=== PATIENT | male | born 1955 | race Caucasian/White ===

== ENCOUNTER 2021-05-02 00:55 | Day surgery (SDC) | payer OTHER, SELFPAY ==
[2021-04-23 15:39] VITALS: BMI 30.1
--- NOTE | 2021-05-01 17:20 | PM.HPGS ---
History of Present Illness History of Present Illness Consent: Risks, benefits, and alternatives have been discussed and questions answered. Patient agrees to proceed with procedure. Chief complaint: neoplasm screening Narrative: Dayday Valenzuela is a 65 year old male referred for colon cancer screening. Review of Systems Review of Systems: All systems reviewed & are unremarkable except as noted in HPI and below PMFSH Past Medical History Medical History Thrombocytopenia Family History Family History Father Hypertension Family history of coronary artery disease Mother Hypertension Family history of diabetes mellitus in first degree relative Family history of coronary artery disease Sibling Hypertension Family history of diabetes mellitus in first degree relative Social History Social History Smoking status: Never smoker Second hand tobacco smoke exposure: No Alcohol intake: current Substance use: never Substance use type: does not use Living arrangements: with family Gender identity (if verbalized by the patient): Male Sexual Orientation (if Verbalized by the Patient): Straight or Heterosexual Spiritual care concerns: No Meds Home Medications and Allergies Home Medications Medication Instructions Recorded Confirmed Type atorvastatin 20 mg tablet 20 mg PO DAILY #90 tablet 07/23/20 05/02/21 Rx lisinopril 10 See Rx Instructions .ROUTE 11/13/20 05/02/21 Rx mg-hydrochlorothiazide 12.5 mg .COMPLEX #90 tablet tablet omega-3 acid ethyl esters 1 gram 2 cap PO BID #360 cap 11/13/20 05/02/21 Rx capsule Allergies Allergy/AdvReac Type Severity Reaction Status Date / Time Penicillins Allergy Unknown unk Verified 05/02/21 08:42 AMOXICILLIN TRIHYDRATE Allergy Unknown unk Uncoded 05/02/21 08:42 Exam Resp: Auscultation: clear to auscultation bilaterally Cardio: Rate: regular rate Rhythm: regular rhythm GI: GI Palp: Yes Soft to palpation and No Tenderness to palpation present (GI) Assessment and Plan Assessment and plan (1) Colon cancer screening: Code(s): Z12.11 - Encounter for screening for malignant neoplasm of colon Status: Acute Assessment and Plan: Colonoscopy with possible biopsy or polypectomy or cautery or injection of substances.
[2021-05-02 08:43] VITALS: BP 130/74; PULSE 86; RESP 18; TEMP 37.4; O2SAT 99; BMI 30.7
[2021-05-02] MEDS: LACTATED RINGERS 1,000 ML 150 ML IV CONT (08:45)
--- NOTE | 2021-05-02 08:49 | WPDANESEPPF ---
Anes - Initial Pre Proc Eval Procedure: Operation Date: 05/02/21 10:00 Proposed Procedures p Screening Colonoscopy - Rickey Deluna MD Date/Time: 05/02/21 08:49 Surgeon: Rickey Deluna MD Pre Op Diagnosis: neoplasm screening Patient Data Age: 65 Gender: M Height: 1.8 m Weight: 99.9 kg Last Vital Signs Temp 37.4 C 05/02/21 08:43 Pulse 86 05/02/21 08:43 Resp 18 05/02/21 08:43 BP 130/74 05/02/21 08:43 Pulse Ox 99 05/02/21 08:43 Allergies Allergy/AdvReac Type Severity Reaction Status Date / Time Penicillins Allergy Unknown unk Verified 05/02/21 08:42 AMOXICILLIN TRIHYDRATE Allergy Unknown unk Uncoded 05/02/21 08:42 Home Medications Medication Instructions Recorded Confirmed Type atorvastatin 20 mg tablet 20 mg PO DAILY #90 tablet 07/23/20 05/02/21 Rx lisinopril 10 See Rx Instructions .ROUTE 11/13/20 05/02/21 Rx mg-hydrochlorothiazide 12.5 mg .COMPLEX #90 tablet tablet omega-3 acid ethyl esters 1 gram 2 cap PO BID #360 cap 11/13/20 05/02/21 Rx capsule Patient hx anesthesia problems: none Family hx anesthesia problems: none Results Review: All pre-operative results and documents have been reviewed as part of the pre-operative evaluation. [facility] Past Medical History Medical History (Updated 05/02/21 @ 08:52 by Remberto Nava MD) Thrombocytopenia Family History Family History Father Hypertension Family history of coronary artery disease Mother Hypertension Family history of diabetes mellitus in first degree relative Family history of coronary artery disease Sibling Hypertension Family history of diabetes mellitus in first degree relative Social History Social History Smoking status: Never smoker Second hand tobacco smoke exposure: No Alcohol intake: current Substance use: never Substance use type: does not use Living arrangements: with family Gender identity (if verbalized by the patient): Male Sexual Orientation (if Verbalized by the Patient): Straight or Heterosexual Spiritual care concerns: No Anes - Eval Final PreProcedure Day of Procedure 05/02/21 08:49 Patient weight: obese Heart: regular rate and rhythm Lungs: clear to auscultation Airway: Mallampati scale class II and special considerations poor opening Neurological: alert and oriented Last oral intake: >/= 8 hours ASA classification: II Emergent: no Anesthetic plan: proceed Anesthesia type and monitoring: general GIVS and standard monitoring Results Review: All pre-operative results and documents have been reviewed as part of the pre-operative evaluation. Informed Consent: The patient's anesthetic plan and its attendant risks and benefits were discussed with the patient/family/POA. Questions were solicited and answers provided to the satisfaction of the patient/family/POA.
[2021-05-02 09:42] VITALS: BP 104/69; PULSE 81; RESP 21; O2SAT 92
[2021-05-02 09:52] VITALS: BP 106/70; PULSE 78; RESP 21; O2SAT 93
[2021-05-02 10:02] VITALS: BP 120/72; PULSE 79; RESP 20; O2SAT 96
== END 2021-05-02 10:27 | disposition home or self-care (01) ==
PROVIDERS: PCP Family Medicine; Visit Provider Internal Medicine Gastroenterology
PROC: 0DJD8ZZ Inspection of Lower Intestinal Tract, Via Natural or Artificial Opening Endoscopic (ICD-10-PCS; CPT 45378; principal; 2021-05-02 10:00)
DX: Z12.11 Encounter for screening for malignant neoplasm of colon (principal); K57.30 Diverticulosis of large intestine without perforation or abscess without bleeding; K58.9 Irritable bowel syndrome, unspecified
CPT/HCPCS: 45378; J2001; J2704; J7120

== ENCOUNTER 2021-10-14 07:47 | Outpatient (CLI) | payer OTHER, SELFPAY ==
[2021-10-14 08:24] LABS: Basophils Absolute Auto 0.1 K/mm3 (0.0-0.1); Basophils Percent Auto 0.8 % (0.2-1.2); Eosinophils Absolute Auto 0.5 K/mm3 (0-0.3); Eosinophils Percent Auto 6.3 % (0-4.4); Hemoglobin 14.9 g/dL (14.0-18.0); Immature Granulocyte Absolute 0.03 K/mm3 (0.00-0.031); Immature Granulocyte Percent A 0.4 % (0-0.5); Lymphocytes Absolute Auto 2.67 K/mm3 (0.9-3.2); Lymphocytes Percent Auto 34.8 % (18.3-44.2); Mean Corpuscular HGB Conc 33.9 g/dl (32-36); Mean Corpuscular Hemoglobin 29.4 pg (26-34); Mean Platelet Volume 9.2 fl (7.4-10.4); Monocytes Absolute Auto 0.6 K/mm3 (0.1-0.6); Monocytes Percent Auto 7.7 % (2.6-8.5); Neutrophils Absolute Auto 3.8 K/mm3 (1.3-6.7); Platelet Count Result 160 k/mm3 (150-375); Red Blood Count 5.06 M/mm3 (4.6-6.20); Red Cell Distribution Width 13.3 % (11.5-14.5); White Blood Count 7.7 K/mm3 (4.5-10.0)
[2021-10-14 08:35] LABS: Anion Gap 4 mmol/L (8-16); Blood Urea Nitrogen 16 mg/dL (9-20); Carbon Dioxide 29 mmol/L (22-30); Chloride 105 mmol/L (98-107); Estimated Glomerular Filt Rate > 60; Glucose 109 mg/dL (65-110); Potassium 3.7 mmol/L (3.4-5.0); Sodium 138 mmol/L (137-145)
== END 2021-10-14 07:48 | disposition home or self-care (01) ==
PROVIDERS: Anesthesiology; Physician Assistant; PCP Family Medicine; Visit Provider Surgery
DX: D69.6 Thrombocytopenia, unspecified (principal); Z51.81 Encounter for therapeutic drug level monitoring; Z01.818 Encounter for other preprocedural examination
CPT/HCPCS: 36415; 80048; 85025

== ENCOUNTER 2021-10-18 00:41 | Day surgery (SDC) | payer OTHER, SELFPAY ==
[2021-10-11 10:58] VITALS: BMI 30.7
--- NOTE | 2021-10-11 11:13 | PC.NURSE ---
Report to the Outpatient Waiting Room, entrance under the green pavilion located off [facility], at time __6:00AM on date ___10/18/21____. OR Time: ___7:30AM . - You and your visitor will be asked a series of questions to screen for COVID 19 for your protection. - Only one visitor is allowed at this time. - The patient visitor is requested to leave or wait in car when not with patient. - A mask is required within the hospital. Patients may have clear liquids (water, carbonated beverages, clear teas, apple juice) until 3 hours prior to surgery with a maximum of 20 ounces. - No food from midnight until time of surgery - Infants may have breast milk until 4 hours before surgery, formula 6 hours prior to surgery. - Children will be allowed to drink immediately following surgery. If applicable, please bring a bottle or sippy cup to assist with drinking. Juice, water, soda, and popsicles are readily available. For infants on formula, please bring formula the day of surgery. Pacifiers are allowed. Take the following medications with a SIP of water the morning of surgery: ___NONE Medications to discontinue per physician HOLD ALL VITAMINS/SUPPLEMENTS 3 DAYS PRE-OP Date to take last dose____10/14/21 CONTINUE ASPIRIN 81MG PER [address] EASTON Please no make-up, nail hungarian, hairspray, perfume, deodorant, or body powder the day of surgery. No jewelry (including any body piercings) or valuables the day of surgery, leave them at home. Please take a shower or bath the night before, or the morning of, surgery with an antibacterial soap. Wear comfortable, loose fitting clothing. Children are encouraged to wear pajamas. - Jewelry must be removed prior to entering the operating room. Rings and piercings that are not removed may be cut off. - The hospital will not accept responsibility for valuables. - Please leave all valuables, including medications, at home the day of surgery. *HIBICLENS SHOWER MORNING OF SURGERY If you are going home after surgery, a licensed parcel post truck driver must drive you home. - NO public transportation without another adult. - We recommend that an adult stay with you for 24 hours following discharge. - We also recommend that you do not drive, make important decision, drink alcoholic beverages, or take any drugs that were not prescribed by your health care provider for at least 24 hours after your discharge time. For Pediatric surgeries, we recommend two adults accompany the child home (only one inside the building at this time). Follow any additional instructions given to you from your surgeon. If you or anyone in your household have experienced Covid symptoms in the past week, please notify your surgeon or the nurse liaison at the phone number below for possible testing. Telephone instructions given to _PATIENT and asked if any additional questions and then verbalized understanding. Patient advised to call surgeon office or pre surgery nurse liaison [phone] if any additional questions.
--- NOTE | 2021-10-15 11:08 | PM.SD2 ---
Same Day Admit/Disch: HPI History of Present Illness Chief complaint: Lt Ing Hernia Narrative: Dayday Valenzuela is a 66 year old male who has noticed a bulge in the left groin area for 3 or 4 years. This is occasionally painful and has been getting bigger. He was seen in the office and found to have a left inguinal hernia. He is taken to surgery now for left inguinal hernia repair. [facility] Past Medical History Medical History (Updated 10/18/21 @ 09:52 by Rolando Romano MD) BMI 31.0-31.9,adult Essential hypertension Obesity Pure hyperglyceridemia Thrombocytopenia Surgical History Surgical History History of surgery on upper extremity Family History Family History Father Hypertension Family history of coronary artery disease Mother Hypertension Family history of diabetes mellitus in first degree relative Family history of coronary artery disease Sibling Hypertension Family history of diabetes mellitus in first degree relative Social History Social History Smoking status: Never smoker Second hand tobacco smoke exposure: No Alcohol intake: current Drinks per week: 1 Substance use: never Substance use type: does not use Living arrangements: with family Additional living arrangements comments: Gender identity (if verbalized by the patient): Male Sexual Orientation (if Verbalized by the Patient): Straight or Heterosexual Spiritual care concerns: No Same Day Admit/Disch: Med Pre-admit Medications Home Medications Medication Instructions Recorded Confirmed Type atorvastatin 20 mg tablet 20 mg PO DAILY #90 tabs 08/05/21 10/18/21 Rx aspirin 81 mg tablet,delayed 81 mg PO DAILY 10/11/21 10/18/21 History release lisinopril 10 1 tablet PO QAM 10/11/21 10/18/21 History mg-hydrochlorothiazide 12.5 mg tablet omega-3 acid ethyl esters 1 gram 1 cap PO BID 10/11/21 10/18/21 History capsule (Lovaza) hydrocodone 5 mg-acetaminophen 325 1 - 2 tablet PO Q6H PRN pain #15 10/18/21 Rx mg tablet tabs ibuprofen 600 mg tablet 600 mg PO Q6H PRN pain #20 tabs 10/18/21 Rx Exam Const: General: comfortable, no acute distress, alert and awake HENMT: Head: normocephalic and atraumatic Mouth: Yes Normal oral and palatal mucosa present Eyes: Conjunctivae: conjunctivae normal Pupils: Equal, round and reactive pupils present EOM: EOMs intact bilaterally Neck: Neck: normal visual inspection, no lymphadenopathy and nontender Resp: Effort & Inspection: normal respiratory effort Auscultation: clear to auscultation bilaterally Cardio: Rate: regular rate Rhythm: regular rhythm Heart sounds: no gallops, no murmurs and no rubs GI: Inspection: non-distended GI Palp: Yes Soft to palpation, No Tenderness to palpation present (GI), No Hepatomegaly present and No Splenomegaly present : Male General Exam: Yes hernia ( reducible left inguinal hernia, insight Hesselbach triangle) Penis: Yes normal penis Scrotum: scrotum normal Testes: Testes normal Skin: Lesions: no lesions Rashes: no rashes Neuro: General: no focal motor deficits and CN's II-XI intact bilaterally Cranial nerves: Yes Equal, round and reactive pupils present, Yes Bilaterally intact EOM present, Yes facial symmetry and Yes Midline tongue present Speech: normal speech Motor exam (neuro): 5/5 motor strength present throughout and Motor abnormalities not present Extrem: General: no clubbing, cyanosis or edema and edema Psych: Affect: normal affect Thought process: Normal thought process present Insight: Good insight present (Psych) DS: Summary Time Spent with Patient Time attestation: Total time spent providing and/or coordinating discharge services: DS: Admitting Diagnosis Discharge Date 10/18/2021 Admitting Diagnosis left ingui
--- NOTE | 2021-10-17 11:51 | WPDANESEPPF ---
Anes - Initial Pre Proc Eval Procedure: Operation Date: 10/18/21 07:30 Proposed Procedures p Left Inguinal Hernia Repair - Rolando Romano MD Date/Time: 10/17/21 11:51 Surgeon: Rolando Romano MD Pre Op Diagnosis: Lt Ing Hernia Patient Data Age: 66 Gender: M Height: 1.8 m Weight: 100 kg Allergies Allergy/AdvReac Type Severity Reaction Status Date / Time No Known Allergies Allergy Verified 10/18/21 06:35 Home Medications Medication Instructions Recorded Confirmed Type atorvastatin 20 mg tablet 20 mg PO DAILY #90 tabs 08/05/21 10/18/21 Rx aspirin 81 mg tablet,delayed 81 mg PO DAILY 10/11/21 10/18/21 History release lisinopril 10 1 tablet PO QAM 10/11/21 10/18/21 History mg-hydrochlorothiazide 12.5 mg tablet omega-3 acid ethyl esters 1 gram 1 cap PO BID 10/11/21 10/18/21 History capsule (Lovaza) Patient hx anesthesia problems: none Family hx anesthesia problems: none Results Review: All pre-operative results and documents have been reviewed as part of the pre-operative evaluation. [facility] Past Medical History Medical History (Updated 10/17/21 @ 11:51 by Stalin Rivera MD) BMI 31.0-31.9,adult Essential hypertension Obesity Pure hyperglyceridemia Thrombocytopenia Surgical History Surgical History History of surgery on upper extremity Family History Family History Father Hypertension Family history of coronary artery disease Mother Hypertension Family history of diabetes mellitus in first degree relative Family history of coronary artery disease Sibling Hypertension Family history of diabetes mellitus in first degree relative Social History Social History Smoking status: Never smoker Second hand tobacco smoke exposure: No Alcohol intake: current Drinks per week: 1 Substance use: never Substance use type: does not use Living arrangements: with family Additional living arrangements comments: Gender identity (if verbalized by the patient): Male Sexual Orientation (if Verbalized by the Patient): Straight or Heterosexual Spiritual care concerns: No Anes - Eval Final PreProcedure Day of Procedure 10/17/21 11:51 Patient weight: obese Heart: regular rate and rhythm Lungs: clear to auscultation Airway: Mallampati scale class II and special considerations poor opening Neurological: alert and oriented Last oral intake: >/= 8 hours ASA classification: II Emergent: no Anesthetic plan: proceed Anesthesia type and monitoring: general GIVS and LMA and standard monitoring Results Review: All pre-operative results and documents have been reviewed as part of the pre-operative evaluation. Informed Consent: The patient's anesthetic plan and its attendant risks and benefits were discussed with the patient/family/POA. Questions were solicited and answers provided to the satisfaction of the patient/family/POA.
[2021-10-18] MEDS: ACETAMINOPHEN 500 MG TABLET 1000 MG PO (06:31)
[2021-10-18] MEDS: LACTATED RINGERS 1,000 ML 30 ML IV CONT (06:45)
[2021-10-18 06:50] VITALS: BP 166/78; PULSE 81; RESP 16; TEMP 37.1; O2SAT 98
[2021-10-18] MEDS: KETOROLAC 15 MG/ML VIAL (*BKC) IV PUSH (07:13)
--- NOTE | 2021-10-18 07:15 | WPDHPUPDATE1 ---
History and Physical Update Update Date/Time: 10/18/21 07:15 History and Physical has been reviewed, including an updated exam of the patient. There are NO changes in the patient's condition. Risks, benefits, and alternatives have been discussed and questions answered. Patient agrees to proceed with procedure.
[2021-10-18] MEDS: ceFAZolin 2 GM/D5W 50 ML 2 GM/50 ML BAG IVPB (07:21)
[2021-10-18] MEDS: LIDO 1%/EPINEPHRINE/PF 1:200,000 30 ML VIAL XX (07:49)
[2021-10-18 09:29] VITALS: BP 137/69; PULSE 81; RESP 16; O2SAT 93
[2021-10-18 09:44] VITALS: BP 140/78; PULSE 64; RESP 16; O2SAT 95
--- NOTE | 2021-10-18 09:53 | W.PM.PROC2 ---
Procedure Note - Detailed Date of Procedure 10/18/21 Pre-op Diagnosis Lt Ing Hernia Post-op Diagnosis Same Procedure Performed Left inguinal hernia repair with extra-large PerFix Light plug and patch Surgeon Rolando Romano MD Job Developer Sandrita MCFARLAND Anesthesia General (G IV S), Local (1% lidocaine with epinephrine) and Other (Xaracoll) Indications Patient has had a left inguinal bulge for at least 3-4 years. It has been getting larger and is sometimes painful. He is taken to surgery now for left inguinal hernia repair. Findings Patient had a longstanding indirect left inguinal hernia. It was densely adherent to tissues of the spermatic cord. There was a sizable lipoma of the cord as well. He also had a small, developing direct inguinal hernia. Description of Procedure The patient was taken to surgery and anesthesia was introduced. The left groin and genitalia were prepped and draped. The proposed incision was marked on the skin. Local anesthetic was infiltrated into the skin and the deeper subcutaneous tissues. Incision was made and deepened through the subcutaneous. Crossing veins were cauterized and divided. Dissection was carried through Mayo's fascia and down to the external oblique aponeurosis. The aponeurosis was exposed as was the external ring. I infiltrated additional local deep to the aponeurosis in the area of the inguinal canal and the spermatic cord. The aponeurosis was opened laterally and extended medially through the external ring. It was heavily scarred at the external ring. I could not follow the path of the ilioinguinal nerve on the spermatic cord past the external ring even though great care had been taken to separate the aponeurosis from the cord when opening it at the external ring. The leaves of the aponeurosis were then freed from the underlying spermatic cord contents. The cord was mobilized medially on a Dodge drain. The cord was then mobilized back to the internal ring. The spermatic cord had a lot of bulky content suggesting a larger Bernei as well as fatty tissue. I found a large lipoma and dissected it back to the internal ring. It was eventually amputated and discarded. I then dissected anteromedially in the cord. I found the hernia sac. It was heavily scarred suggesting it had been present for a long time. He was difficult to from the spermatic cord contents although this was done without significant bleeding or injury of any significant blood vessel. We continued this rather tedious dissection back to the internal ring and completed a high dissection. At 1 point I opened the hernia sac at its apex and was able to put my finger into the cord and assist with the dissection. I later then closed this opening with a running 3-0 Vicryl suture. I dunked the hernia sac into the retroperitoneum. I then proceeded to further mobilize the cord and divide some cremasteric fibers. Some additional fatty tissue was excised from the cord again taking care not to injure any significant blood vessels. I then noticed that there was small, possibly a developing, direct hernia in the direct space. I used an extra-large PerFix Light plug and placed it in the internal ring after the hernia had been reduced. I sutured the edges of the mesh to the transversalis fascia with interrupted 3-0 Vicryl suture. I then used some 0 Ethibond and closed transversalis fascia to the reflection of the ileoinguinal ligament to repair the developing direct hernia. I then cut the patch to the appropriate size and laid it over the inguinal canal floor. The lateral leaves passed beyond the cord on either side. All looked good. I then placed the 1st piece of Xaracoll over the patch. The cord and ilioinguinal nerve were laid over the the Xaracoll. The external oblique aponeurosis was closed with interrupted 3-0 Vicryl suture. The 2nd piece of Xaracoll was then laid over the aponeurosis. I closed Mayo's fascia with interrupte
[2021-10-18 10:01] VITALS: BP 120/69; PULSE 64; RESP 16
[2021-10-18 10:30] VITALS: BP 131/68; PULSE 71; RESP 18
[2021-10-18 10:59] VITALS: BP 153/71; PULSE 61; RESP 16
== END 2021-10-18 11:00 | disposition home or self-care (01) ==
PROVIDERS: PCP Family Medicine; Visit Provider Surgery
PROC: (CPT 49505; principal; 2021-10-18 07:30)
DX: K40.90 Unilateral inguinal hernia, without obstruction or gangrene, not specified as recurrent (principal); D17.6 Benign lipomatous neoplasm of spermatic cord; Z79.82 Long term (current) use of aspirin; I10 Essential (primary) hypertension; R73.9 Hyperglycemia, unspecified; D69.6 Thrombocytopenia, unspecified; E66.9 Obesity, unspecified; Z68.31 Body mass index [BMI] 31.0-31.9, adult
CPT/HCPCS: 49505; 36415; 80048; 85025; A9270; C1781; J0690; J1885; J2250; J2704; J3010; J7120

== ENCOUNTER 2024-01-27 16:44 | Outpatient (CLI) | payer OTHER, SELFPAY ==
--- NOTE | ~2024-01-27 | XR_ITS ---
XR knee RT min 4V Ordering provider: Jimbo Baez PA-C History: . M17.11 - Unilateral primary osteoarthritis, right knee . Comparison: June 07, 2016 FINDINGS: BONES: No acute fracture or dislocation. JOINT SPACES: Severe narrowing of the medial compartment. Marginal osteophytes in the patella. Subchondral cystic area seen medially in the femur unchanged. Possibility of loose body is seen in th e skyline view is not excluded. SOFT TISSUES: Normal. IMPRESSION: No acute osseous abnormality right knee. Severe osteoarthritic changes. Reviewed, dictated and finalized at location A.
== END 2024-01-27 16:45 | disposition home or self-care (01) ==
LOC: ANHIMG 16:52
PROVIDERS: PCP Family Medicine; Visit Provider Physician Assistant
DX: M17.11 Unilateral primary osteoarthritis, right knee (principal)
CPT/HCPCS: 73564

== ENCOUNTER 2024-06-23 09:47 | Outpatient (CLI) | payer OTHER, SELFPAY ==
--- NOTE | 2024-06-23 10:00 | ECG_ITS ---
Test Date: 2024-06-23 10:11:27 Measurements Intervals [place] Rate: 72 P: 14 AL: 225 QRS: 39 QRSD: 109 T: 0 QT: 364 QTc: 401 Interpretive Statements SINUS RHYTHM WITH FIRST DEGREE AV BLOCK CONSIDER INFERIOR INFARCT, AGE INDETERMINATE ABNORMAL ECG No previous ECG available for comparison Electronically Signed On 06-23-2024 10:12:40 CREPING MACHINE OPERATOR HELPER by Silverio Chu D.O.
--- OUTSIDE RECORDS SUMMARY | 2024-06-23 10:11 | XMS_ITS | Clinical Summary ---
Author Organization [facility] Address [facility] [place] [address] Care Team Providers Care Lithography Contact Worker Name Role Phone Unavailable Primary Care Provider Unavailabl e Source Comments [facility],non-owned Affiliates and Associated Physician Practices is amultiple site organization consisting of ambulatory clinics and hospital sitesin [place], [place]. This disclosure is being madepursuant to the Care Everywhere program and may not contain all information available regarding this patient. Last updated 18.[facility] Social History Tobacco Use Types Packs/Day Years Used Date Smoking Tobacco: Never Assessed Sex and Gender Information Value Date Recorded Sex Assigned at Not on file Gender Identity Not on file Sexual Orientation Not on file Plan of Treatment Health Maintenance Due Date Last Done Comments COLOGUARD (AGES 45-75) - COL ON CA SCREENING 1956 COLON MONITORING 1956 COLONOSCOPY - COLON CA SCREENING 1956 CT COLONOGRAPHY - COLON CA SCREENING 1956 Colorectal Cancer Screening 1956 FIT - COLON CA SCREENING 1956 FLEX SIG - COLON CA SCREENING 1956 LIPID TESTING 1956 HEPATITIS C SCREENING 07/25/1974 DTAP/TDAP/TD VACCINES (1 - Tdap) 07/30/1975 PNEUMOCOCCAL VACCINE 50+ (1 of 1 - PCV) 2006 ZOSTER VACCINE (1 of 2) 2006 COVID-19 VACCINE ( - 2023-2 5 season) 2024 INFLUENZA VACCINE (#1) 2024 DEPRESSION SCREENING 05/11/2024 Respiratory Syncytial Virus (RSV) Vaccine Pt: or over 60 yrs (1 - 1-dose 75+ series) 07/30/2031 HEPATITIS B VACCINE Aged Out No longe r eligible based on patient's age to complete this topic HIB VACCINE Aged Out No longer eligi ble based on patient's age to complete this topic HPV VACCINE Aged Out No longer eligi ble based on patient's age to complete this topic MENINGOCOCCAL (Group B) VACCINE Aged Out No longer eligible based on patient's age to complete this topic MENINGOCOCCAL VACCINE Aged Out No luan tess eligible based on patient's age to complete this topic
--- OUTSIDE RECORDS SUMMARY | 2024-06-23 10:11 | XMS_ITS | Referral Summary ---
Author Organization [facility] Address [facility] [place] [address] Care Team Providers Care Charcoal Burner Beehive Kiln Name Role Phone Unavailable Primary Care Provider Unavailabl e Source Comments [facility],non-general [facility] Affiliates and Associated Physician Practices is amultiple site organization consisting of ambulatory clinics and hospital sitesin [place], [place], [place] and [place]. This disclosure is being madepursuant to the Care Everywhere program and may not contain all information available regarding this patient. Last updated 18.[facility] [employer] Social History Tobacco Use Types Packs/Day Years Used Date Smoking Tobacco: Never Assessed Sex and Gender Information Value Date Recorded Sex Assigned at Not on file Gender Identity Not on file Sexual Orientation Not on file Plan of Treatment Not on file Administered Medications
--- OUTSIDE RECORDS SUMMARY | 2024-06-23 10:11 | XMS_ITS | Patient Health Summary ---
Author Organization [facility] Address [address] [place] [address] Care Team Providers Care Production Zone Leader Name Role Phone Unavailable Primary Care Provider Unavailabl e Note from [facility],non-owned Affiliates and Associated Physician Practices is amultiple site organization consisting of ambulatory clinics and hospital sitesin [place], [place], [place] and [place]. This disclosure is being madepursuant to the Care Everywhere program and may not contain all information available regarding this patient. Last updated 18.[facility] [employer] Social History Tobacco Use Types Packs/Day Years Used Date Smoking Tobacco: Never Assessed Sex and Gender Information Value Date Recorded Sex Assigned at Not on file Gender Identity Not on file Sexual Orientation Not on file Procedures * SKIN TEST PPD - POINT OF CARE(Performed 10/31/2019) Performed for Screening for tuberculosis Results * SKIN TEST PPD - POINT OF CARE (10/31/2019 9:09 AM CDT) PPD 0mm normal, ppd placed on 10/28/2019 @ 6:55pm, ppd read on 10/31/2019 @ 0905 Other MISCELLANEOUS SAMPLE S / Unknown 10/31/2019 9:09 AM CDT Rogers Griffith RIGHT OF WAY CLEARER-DAIRY TECHNICIAN LAB - POINT OF CARE ORDERABLES
--- OUTSIDE RECORDS SUMMARY | 2024-06-23 10:11 | XMS_ITS | Clinical Summary ---
Author Organization [facility] Address [address] [place] [address] Care Team Providers Care Senior Treasury Analyst Name Role Phone Unavailable Primary Care Provider Unavailabl e Immunizations Immunization Administration Dates Next Due (SHINGRIX)(50 YRS UP) ZOSTER VACCINE RECOMBINANT, 0.5 ML, IM 04/05/2022 INFLUENZA VACCINE HIGH DOSE QUADRIVALENT 65 YR U P PF IM 01/12/2023 Social History Tobacco Use Types Packs/Day Years Used Date Smoking Tobacco: Never Assessed Sex and Gender Information Value Date Recorded Sex Assigned at Not on file 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
== END 2024-06-23 09:48 | disposition home or self-care (01) ==
LOC: ANHCARD 09:49
PROVIDERS: PCP Family Medicine; Visit Provider Orthopaedic Surgery
DX: I10 Essential (primary) hypertension (principal)
CPT/HCPCS: 93005

== ENCOUNTER 2024-08-15 08:49 | Outpatient (CLI) | payer OTHER, SELFPAY ==
--- NOTE | ~2024-08-15 | NM_ITS ---
EXAMINATION: NM valerie stress w perfusion DATE: 08/15/2024 10:52 INDICATION: Encounter for preprocedural cardiovascular examination TECHNIQUE: Rest images were obtained following intravenous administration of 10.6 mCi Tc99m tetrofosm in (Myoview). The patient was infused intravenously with Lexiscan (Regadenoson). Then, 33 mCi Tc99m t etrofosmin (Myoview) was administered intravenously, and stress images were obtained. Data was recons tructed into short axis and horizontal and vertical long axis SPECT images. Gated SPECT images were a lso obtained. COMPARISON: None. FINDINGS: There is no definite reversible or fixed perfusion abnormality to suggest ischemia or infar ction. There is normal left ventricular chamber size, wall motion and ejection fraction. Left ventr icular ejection fraction measures >70%. IMPRESSION: 1. Normal myocardial perfusion at rest and during stress. 2. Left ventricular ejection fraction measuring >70%. Reviewed, dictated and finalized at location A.
--- NOTE | 2024-08-15 08:58 | EST_ITS ---
Patient Info Name: Dayday Valenzuela Age: 69 years : 1955 Gender: Male Ht: 71 in Wt: 202 lbs BSA: 2.16 m2 HR: 69 bpm BP: 121 / 70 mmHg Exam Date: 08/15/2024 10:01 AM Exam Location: Echo Lab Patient Status: Outpatient Admit Date: 08/15/2024 Staff Ordering Physician: Silverio Chu DO Attending Provider: Silverio Chu DO Exercise Technologist: Lexi Stevens RDCS Exercise Physician: Silverio Chu DO Exam Type: CA stress valerie w NM Study Info A regadenoson stress test was performed. Summary 1. 1. Negative lexiscan stress test for ischemic ST changes by ECG criteria. 2. 2. Stable hemodynamics throughout the test. 3. 3. Nuclear scan to follow and will be reported separately. Please correlate with it. 4. 4. Patient informed of the above results. Protocol: Lexiscan Stress ECG Details Stage: REST Duration (min): 1 min : 0 sec HR (bpm): 66 SBP (mmHg): 121 DBP (mmHg): 70 Stage: REST Duration (min): 6 min : 9 sec HR (bpm): 71 SBP (mmHg): 121 DBP (mmHg): 70 Stage: STAGE 1 Duration (min): 1 min : 0 sec HR (bpm): 82 SBP (mmHg): 123 DBP (mmHg): 69 Stage: RECOVERY Duration (min): 1 min : 0 sec HR (bpm): 91 SBP (mmHg): 123 DBP (mmHg): 69 Stage: RECOVERY Duration (min): 2 min : 0 sec HR (bpm): 86 SBP (mmHg): 123 DBP (mmHg): 69 Stage: RECOVERY Duration (min): 3 min : 0 sec HR (bpm): 84 SBP (mmHg): 128 DBP (mmHg): 67 Stage: RECOVERY Duration (min): 3 min : 3 sec HR (bpm): 84 SBP (mmHg): 128 DBP (mmHg): 67 Rest HR: 71 bpm Peak HR: 92 bpm Rest Sys BP: 121 mmHg Peak Sys BP: 128 mmHg Max Pred HR: 152 bpm % Max Pred HR: 61 % Target HR: 129 bpm Max RPP: 11,776 bpm*mmHg Termination Reason: Completed protocol Cardiac Symptoms: Shortness of breath Total Time: 1 min : 0 sec Rest Brooks BP: 70 mmHg Peak Brooks BP: 67 mmHg Total Dose: 0.4 mg Resting ECG Sinus rhythm. Stress ECG No ST changes. Arrhythmias None. Report Signatures
--- OUTSIDE RECORDS SUMMARY | 2024-08-15 09:21 | XMS_ITS | Clinical Summary ---
Author Organization [facility] Address [facility] [place] [address] Care Team Providers Care Assistant Superintendent Name Role Phone Unavailable Primary Care Provider Unavailabl e Source Comments [facility],non-owned Affiliates and Associated Physician Practices is amultiple site organization consisting of ambulatory clinics and hospital sitesin [place], [place], [place] and [place]. This disclosure is being madepursuant to the Care Everywhere program and may not contain all information available regarding this patient. Last updated 18.[facility] Social History Tobacco Use Types Packs/Day Years [...] to complete this topic MENINGOCOCCAL (Group B) VACC INE SHARED DECISION-MAKING Aged Out No longer eligibl e based on patient's age to complete this topic MENINGOCOCCAL GROUPS A/C/Y/W VACCINE Aged Out No longer eligible b ased on patient's age to complete this topic
--- OUTSIDE RECORDS SUMMARY | 2024-08-15 09:21 | XMS_ITS | Clinical Summary ---
Author Organization [facility] Address [address] [place] 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
== END 2024-08-15 08:50 | disposition home or self-care (01) ==
LOC: ANHCARD 08:51
PROVIDERS: PCP Family Medicine; Visit Provider Internal Medicine Cardiovascular Disease
DX: Z01.810 Encounter for preprocedural cardiovascular examination (principal)
CPT/HCPCS: 78452; 93017; A9502; J2785

== ENCOUNTER 2024-08-18 11:57 | Outpatient (CLI) | payer OTHER, SELFPAY ==
--- OUTSIDE RECORDS SUMMARY | 2024-08-18 12:37 | XMS_ITS | Clinical Summary ---
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
--- OUTSIDE RECORDS SUMMARY | 2024-08-18 12:37 | XMS_ITS | Clinical Summary ---
Author Organization [facility] [employer] Address [facility] [place] [address] Care Team Providers Care Line Server Name Role Phone Unavailable Primary Care Provider Unavailabl e Source Comments [facility],non-owned Affiliates and Associated Physician Practices is amultiple site organization consisting of ambulatory clinics and hospital sitesin [place], [place] and [place]. This disclosure is being madepursuant to the Care Everywhere program and may not contain all information available regarding this patient. Last updated 18.[facility] [employer] Social History Tobacco Use Types Packs/Day Years [...] VACCINE ( - 2023-2 5 season) 2024 DEPRESSION SCREENING 05/11/2024 INFLUENZA VACCINE (Season Ended) 2025 Respiratory Syncytial Virus (RSV) Vaccine Pt: or [...]
[2024-08-18 13:18] LABS: Basophils Percent Auto 0.6 % (0.2-1.2); Eosinophils Absolute Auto 0.2 K/mm3 (0-0.3); Eosinophils Percent Auto 3.1 % (0-4.4); Hematocrit 39.1 % (42.0-52.0); Hemoglobin 13.5 g/dL (14.0-18.0); Immature Granulocyte Absolute 0.02 K/mm3 (0.00-0.031); Immature Granulocyte Percent A 0.3 % (0-0.5); Lymphocytes Absolute Auto 2.08 K/mm3 (0.9-3.2); Mean Corpuscular HGB Conc 34.5 g/dl (32-36); Mean Corpuscular Hemoglobin 29.7 pg (26-34); Mean Corpuscular Volume 86.1 fl (80-100); Mean Platelet Volume 9.4 fl (7.4-10.4); Monocytes Absolute Auto 0.7 K/mm3 (0.1-0.6); Monocytes Percent Auto 10.4 % (2.6-8.5); Neutrophils Absolute Auto 3.5 K/mm3 (1.3-6.7); Neutrophils Percent Auto 53.6 % (45.5-73.1); Platelet Count Result 182 k/mm3 (150-375); Red Blood Count 4.54 M/mm3 (4.6-6.20); Red Cell Distribution Width 12.7 % (11.5-14.5); White Blood Count 6.5 K/mm3 (4.5-10.0)
[2024-08-18 13:20] LABS: Add Urine Microscopic? NO; Appearance Urine Clear (Clear); Bilirubin Urine Negative (Negative); Blood Urine Negative (Negative); Color Urine Yellow (Yellow); Glucose Urine UA Negative (Negative); Ketones Urine Trace mg/dL (Negative); Leukocyte Esterase Ur Negative LEU/UL (Negative); Nitrate Urine Negative (Negative); Protein Urine Negative (Negative); Specific Grav Ur 1.017 (1.001-1.035); Urobilinogen Urine 0.2 mg/dL (<2.0); pH Urine 5.5 (5.0-9.0)
[2024-08-18 13:31] LABS: Albumin Level 4.5 g/dL (3.5-5.1); Anion Gap 11 mmol/L (4-12); Blood Urea Nitrogen 15 mg/dL (9-20); Calcium 9.1 mg/dL (8.4-10.2); Carbon Dioxide 24 mmol/L (22-30); Chloride 102 mmol/L (98-107); Estimated Glomerular Filt Rate > 60; Glucose 93 mg/dL (65-110); Potassium 4.2 mmol/L (3.4-5.0); Sodium 137 mmol/L (137-145)
[2024-08-18 13:35] LABS: Partial Thromboplastin Time 27.7 Seconds (22.3-36.8)
[2024-08-18 13:41] LABS: Urine Cotinine NEGATIVE
[2024-08-18 13:44] LABS: Prothrombin Time 13.5 Seconds (11.1-14.7)
[2024-08-18 14:32] LABS: MRSA (PCR) NOT DETECTED (NOT DETECTE)
== END 2024-08-18 11:58 | disposition home or self-care (01) ==
LOC: ANHSURGERY 12:01
PROVIDERS: PCP Family Medicine; Visit Provider Orthopaedic Surgery
DX: M17.11 Unilateral primary osteoarthritis, right knee (principal); Z01.818 Encounter for other preprocedural examination
CPT/HCPCS: 80048; 80307; 81003; 82040; 85025; 85610; 85730; 86850; 86900; 86901; 87641

== ENCOUNTER 2024-08-24 00:41 | Day surgery (SDC) | payer OTHER, SELFPAY ==
--- NOTE | 2024-08-18 12:01 | PC.NURSE ---
Report to the Outpatient Waiting Room, entrance under the green pavilion located off [facility], at time _8:30 AM on date __08/24/24 . Planned Procedure Time: _10:30 AM .? Time changes happen often and if your time is changed the preop area will call you the afternoon before. - You and your visitor will be asked to self-screen and do not enter if you have any COVID symptoms. Please call surgeon if you need to reschedule. - A mask is optional within the hospital at this time. Patients may have clear liquids (water, carbonated beverages, clear teas, apple juice) until 3 hours prior to surgery ( 7:30 AM) with a maximum of 20 ounces. - No food from midnight until time of surgery and no smoking, or chewing tobacco (or any form of nicotine). No chewing gum, candy or mints. Take only the following medications with a SIP of water on the morning of surgery: ___SERTRALINE DO NOT STOP ANY OF YOUR OTHER PRESCRIPTION MEDICATIONS PRIOR TO SURGERY EXCEPT THE FOLLOWING PT STATES Hold all vitamins and supplements for [address] JAMISON LAST DOSE 08/16/[address] JAMISNO Medications to discontinue per physician Date to take last dose Please no make-up, nail irish, hairspray, perfume, deodorant, or body powder the day of surgery.? No jewelry (including any body piercings) or valuables the day of surgery, leave them at home.? Please take a shower or bath the night before, or the morning of, surgery with an antibacterial soap.? Wear comfortable, loose fitting clothing.? Children are encouraged to wear pajamas. - Jewelry must be removed prior to entering the operating room.? Rings and piercings that are not removed may be cut off. - The hospital will not accept responsibility for valuables.? - Please leave all valuables, including medications, at home the day of surgery. If you are going home after surgery, a licensed restaurant delivery driver must drive you home.? - NO public transportation without another adult if you receive anesthesia. - We recommend that an adult stay with you for 24 hours following discharge. - We also recommend that you do not drive, make important decision, drink alcoholic beverages, or take any drugs that were not prescribed by your health care provider for at least 24 hours after your discharge time. Follow any additional instructions given to you from your surgeon. VERBAL AND WRITTEN instructions given to _PATIENT and asked if any additional questions and then verbalized understanding. Patient advised to call surgeon office or pre surgery nurse liaison [phone] if any additional questions.
[2024-08-18 12:05] VITALS: BMI 29.3
[2024-08-18 12:53] VITALS: BP 115/66; PULSE 72; RESP 18; TEMP 36.8; O2SAT 98
[2024-08-24] VITALS (19 sets, daily range): BP systolic 104–163; BP diastolic 56–86; PULSE 59–78; RESP 12–20; TEMP 36.4–37.2; O2SAT 92–100
--- NOTE | ~2024-08-24 | XR_ITS ---
EXAMINATION: [id number] DATE: 08/24/2024 13:37 CDT INDICATION: Postoperative evaluation TECHNIQUE: 2 views right knee FINDINGS: There is a right total knee arthroplasty in expected position. Subcutaneous gas with fluid and air in the joint, consistent with recent surgery. No evidence of periprosthetic fracture. IMPRESSION: Expected perioperative appearance of a right total knee prosthetic, as detailed above. Reviewed, dictated and finalized at location A.
--- OUTSIDE RECORDS SUMMARY | 2024-08-24 00:43 | XMS_ITS | Clinical Summary ---
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
--- OUTSIDE RECORDS SUMMARY | 2024-08-24 00:43 | XMS_ITS | Clinical Summary ---
Author Organization [facility] Address [facility] [place] [address] Care Team Providers Care Collection Clerk Name Role Phone Unavailable Primary Care Provider Unavailabl e Source Comments [facility],non-owned Affiliates and Associated Physician Practices is amultiple site organization consisting of ambulatory clinics and hospital sitesin [place], [place], [place] and [place]. This disclosure is being madepursuant to the Care Everywhere program and may not contain all information available regarding this patient. Last updated 18.[facility] Social History Tobacco Use Types Packs/Day Years Used Date Smoking Tobacco: Never Assessed Sex and Gender Information Value Date Recorded Sex Assigned at Not on file Legal Sex Male 6:34 PM CDT Gender Identity Not on file Sexual Orientation [...] VACCINE (1 of 2) 2006 COVID-19 VACCINE (1 - 2023-2 5 season) 2024 DEPRESSION SCREENING [...] on patient's age to complete this topic Insurance [facility]
--- NOTE | 2024-08-24 07:19 | WPDHPUPDATE1 ---
History and Physical Update Update Date/Time: 08/24/24 07:19 History and Physical has been reviewed, including an updated exam of the patient. There are NO changes in the patient's condition. Risks, benefits, and alternatives have been discussed and questions answered. Patient agrees to proceed with procedure.
[2024-08-24] MEDS: TRANEXAMIC ACID 1,000MG/ISO100 1,000 MG/100 ML BAG 200 MG IVPB (09:00)
[2024-08-24] MEDS: LACTATED RINGERS 1,000 ML 30 ML IV CONT ×2 (09:00→11:51)
--- NOTE | 2024-08-24 09:28 | WPDANESEPPF ---
Anes - Initial Pre Proc Eval Procedure: Operation Date: 08/24/24 10:30 Proposed Procedures p Right Total Knee Arthroplasty - Ulices Nascimento MD Date/Time: 08/24/24 09:28 Surgeon: Ulices Nascimento MD Pre Op Diagnosis: Rt Knee DJD Patient Data Age: 69 Gender: M Height: 1.8 m Weight: 92.4 kg Last Vital Signs Temp 37.2 C 08/24/24 09:00 Pulse 72 08/24/24 09:00 Resp 16 08/24/24 09:00 BP 137/74 08/24/24 09:00 Pulse Ox 99 08/24/24 09:00 O2 Del Method Room Air 08/24/24 09:00 Allergies Allergy/AdvReac Type Severity Reaction Status Date / Time No Known Allergies Allergy Verified 08/24/24 09:16 Home Medications ?Medication ?Instructions ?Recorded ?Confirmed ?Type sertraline 25 mg tablet 25 mg PO DAILY #90 tabs 09/22/23 08/22/24 Rx lisinopril 10 1 tablet PO QAM #90 tabs 04/12/24 08/24/24 Rx mg-hydrochlorothiazide 12.5 mg tablet celecoxib 200 mg capsule (Celebrex) 200 mg PO DAILY #90 caps 04/25/24 08/24/24 Rx omega-3 acid ethyl esters 1 gram 2 cap PO BID #360 caps 04/25/24 08/24/24 Rx capsule (Lovaza) rosuvastatin 10 mg tablet 10 mg PO DAILY #90 tabs 04/25/24 08/24/24 Rx chlorhexidine gluconate 4 % 1 applic topical ONCE #237 mL 08/17/24 08/24/24 Rx topical liquid (Hibiclens) cetirizine 10 mg tablet (Aller-Mckenna) 10 mg PO DAILY PRN allergy symptoms 08/18/24 08/24/24 History cholecalciferol (vitamin D3) 50 50 mcg PO DAILY 08/18/24 08/24/24 History mcg (2,000 unit) capsule coQ10 (ubiquinol) 100 mg capsule 100 mg PO DAILY 08/18/24 08/24/24 History magnesium 250 mg tablet 250 mg PO DAILY 08/18/24 08/24/24 History Patient hx anesthesia problems: none Family hx anesthesia problems: none Results Review: All pre-operative results and documents have been reviewed as part of the pre-operative evaluation. [facility] Past Medical History Medical History Obesity BMI 31.0-31.9,adult Thrombocytopenia Essential hypertension Pure hyperglyceridemia Surgical History Surgical History H/O inguinal hernia repair History of surgery on upper extremity Family History Family History Father Hypertension Family history of coronary artery disease Mother Hypertension Family history of diabetes mellitus in first degree relative Family history of coronary artery disease Sibling Hypertension Family history of diabetes mellitus in first degree relative Unknown Diabetes mellitus Cerebrovascular accident Hypertension High cholesterol Social History Social History Smoking status: Never smoker Second hand tobacco smoke exposure: No Additional smoking assessment comments: DENIES ANY FORM OF TOBACC USE Alcohol intake: current Drinks per week: 1 Substance use: never Substance use type: does not use Other substance usage details: CBD SL LIQUID EVERY HS NO THC Living arrangements: with family Additional living arrangements comments: Occupation/Education: occupation Gender identity (if verbalized by the patient): Male Sexual Orientation (if Verbalized by the Patient): Straight or Heterosexual Spiritual care concerns: No Anes - Eval Final PreProcedure Day of Procedure 08/24/24 09:28 Patient weight: overweight Heart: regular rate and rhythm Lungs: clear to auscultation Airway: Mallampati scale class II Neurological: alert and oriented Last oral intake: >/= 8 hours ASA classification: II Emergent: no Anesthetic plan: proceed Anesthesia type and monitoring: general LMA and standard monitoring Results Review: All pre-operative results and documents have been reviewed as part of the pre-operative evaluation. Informed Consent: The patient's anesthetic plan and its attendant risks and benefits were discussed with the patient/family/POA. Questions were solicited and answers provided to the satisfaction of the patient/family/POA.
[2024-08-24] MEDS: ACETAMINOPHEN 500 MG TABLET 1000 MG PO (09:29)
[2024-08-24] MEDS: ceFAZolin 2 GM/D5W 50 ML 2 GM/50 ML BAG IVPB ×2 (10:00→17:18)
[2024-08-24] MEDS: SODIUM CHLORIDE 0.9% IV 37.7 ML, MORPHINE SULFATE INJ (*CRX) 2 MG, ROPivacaine HCL 1% 2... INFILTRATE (10:22)
[2024-08-24] MEDS: TRANEXAMIC ACID 1,000 MG/10 ML AMPUL 1000 MG IV PUSH (11:08)
--- NOTE | 2024-08-24 11:55 | P.OP_ITS ---
Procedure Note - Detailed Date of Procedure 08/24/24 Pre-op Diagnosis Rt Knee DJD Post-op Diagnosis Same Procedure Performed R TKA Surgeon Ulices Nascimento MD Anesthesia General Description of Procedure THE RIGHT KNEE WAS PREPPED AND DRAPED IN THE STERILE FASHION. THERE WAS A 10 DEGREE FLEXION CONTRACTURE. A MIDLINE SKIN INCISION WAS MADE. A MEDIAL PARAPATELLAR ARTHROTOMY WAS MADE. THE PATELLA WAS EVERTED. THERE WAS TRICOMPARTMENT DJD. THERE WAS MINIMAL PATELLA DJD. AN INTRAMEDULLARY KATHY WAS PLACED IN THE FEMUR. A DISTAL FEMORAL CUT WAS MADE IN 5 DEGREES OF VALGUS REMOVING APPROXIMATELY 8 MM OF BONE FROM THE DISTAL FEMUR. THE FEMUR WAS SIZED TO 5. A 5 FEMORAL CUTTING BLOCK WAS PLACED IN 3 DEGREES OF EXTERNAL ROTATION AND IN ALIGNMENT WITH WEST'S LINE AND THE TRANSEPICONDYLAR AXIS. ANTERIOR POSTERIOR AND CHAMFER CUTS WERE MADE. THE CUTS WERE EXCELLENT. NEXT AN INTRAMEDULLARY CUTTING GUIDE WAS PLACED IN THE TIBIA. A TRANS TIBIAL CUT WAS MADE ALONG THE LONG AXIS OF THE TIBIA. APPROXIMATELY 8 MM OF BONE WAS REMOVED FROM THE HIGH SIDE OF THE TIBIA. THE TIBIA WAS THEN PLANED TO A SMOOTH SURFACE. POSTERIOR FEMORAL OSTEOPHYTES WERE REMOVED FROM THE FEMORAL CONDYLES. A 5 TIBIAL TRIAL WAS PLACED IN ALIGNMENT WITH THE 1/3 MEDIAL ASPECT OF THE TIBIAL TUBERCLE. THEN A 5 FEMORAL TRIAL COMPONENT WAS PLACED. BOTH HAD EXCELLENT FITS. EVENTUALLY A 9 MM CS POLYETHYLENE TRIAL COMPONENT WAS PLACED. THE KNEE WAS TAKEN THROUGH A RANGE OF MOTION. THE KNEE CAME OUT TO FULL EXTENSION. THER E WAS NO ABNORMAL TILT TO THE PATELLA. THERE WAS GOOD A/P AND VARUS/VALGUS STABILITY. THERE WAS NO EXCESSIVE ROLL BACK WITH FLEXION. THE TRIAL COMPONENTS WERE REMOVED. THEN A SHAHRZAD 5 FEMORAL COMPONENT AND 5 TIBIAL COMPONENT WITH A 9 CS POLYETHYLENE COMPONENT WERE PRESS FIT INTO PLACE. IMPLANT SURFACES WERE FLUSH WITH THE BONE SURFACE. THE KNEE WAS TAKEN THROUGH A ROM AGAIN AND FOUND TO BE STABLE WITH NO PATELLA TILT NO EXCESSIVE ROLL BACK WITH FLEXION AND GOOD STABILITY WITH COMPLETE AND FULL EXTENSION. THE KNEE WAS IRRIGATED WITH STERILE BETADINE AND WATER FOR ABOUT 3 MINUTES. THE BLEEDERS WERE CAUTERIZED. THE ARTHROTOMY WAS REPAIRED WITH NUMBER 1 VICRYL AND 2 STRATAFIX. THE SUB CUTANEOUS LAYER WITH 2-0 VICRYL AND THE SKIN WITH A RUNNING 3-0 STRATAFIX AND DERMABOND. THE WOUND WAS WASHED AND A STERILE DRESSING WAS APPLIED. PATIENT WAS EXTUBATED. Estimated Blood Loss -150.0 Pathology None sent Complications No immediate complications Condition Stable Disposition PACU
[2024-08-24] MEDS: HYDROmorphone HCL INJ (*CRX) 1 MG/ML SYR 0.25 MG IV PUSH (12:21)
--- NOTE | 2024-08-24 14:05 | SUR.PHASEI ---
[id number] NURSE TELEGRAPHIC TYPEWRITER OPERATOR CHIEF FRACISCO CALLED RE: BED NUMBER; SHE SAID SHE WOULD CALL BACK SOON THERE IS A BED.
--- NOTE | 2024-08-24 14:27 | SUR.PHASEI ---
PHYSICAL THERAPY COMING TO WORK WITH PATIENT. PATIENT MOVED TO OP ROOM 16. PATIENT VERY ALERT, ORIENTED, TALKATIVE, DECLINES PAIN MED.
--- NOTE | 2024-08-24 15:34 | ADMGEN ---
This patient, Dayday Valenzuela, was admitted to -. Patient/family oriented to hospital policies and general routines including ID bracelet, bed and alarms, visiting hours, pain management, procedures, bathroom and other care routines, personal items, smoking policy, room service/diet, and visiting hours. Information on how to activate the Rapid Response Team has been discussed. Patient/Family are encouraged to report perceived risks to care and to ask questions if they do not understand what they are told or what they should do. Report from Annalise.
[2024-08-24] MEDS: oxyCODONE/ACETAMINOPHEN (*CRX) 5-325 MG TABLET 1 TABLET PO ×2 (15:46→20:03)
[2024-08-24] MEDS: KETOROLAC 15 MG/ML VIAL (*BKC) IV PUSH (17:17)
[2024-08-24] MEDS: SENNA/DOCUSATE SODIUM TABLET 2 TAB PO (17:18)
[2024-08-24] MEDS: ASPIRIN 81 MG ENTERIC TABLET PO (20:03)
[2024-08-24] MEDS: FAMOTIDINE 20 MG TABLET PO (20:03)
[2024-08-25] MEDS: KETOROLAC 15 MG/ML VIAL (*BKC) IV PUSH ×3 (00:15→11:13)
[2024-08-25 01:12] VITALS: BP 126/72; PULSE 73; RESP 18; TEMP 37.1; O2SAT 97
[2024-08-25] MEDS: ceFAZolin 2 GM/D5W 50 ML 2 GM/50 ML BAG IVPB ×2 (02:52→11:12)
[2024-08-25] MEDS: oxyCODONE/ACETAMINOPHEN (*CRX) 5-325 MG TABLET 1 TABLET PO (03:01)
[2024-08-25 05:06] VITALS: BP 153/73; PULSE 74; RESP 18; TEMP 37.2; O2SAT 96
[2024-08-25 06:05] LABS: Basophils Percent Auto 0.2 % (0.2-1.2); Eosinophils Percent Auto 0.3 % (0-4.4); Hematocrit 32.1 % (42.0-52.0); Immature Granulocyte Absolute 0.07 K/mm3 (0.00-0.031); Immature Granulocyte Percent A 0.5 % (0-0.5); Lymphocytes Absolute Auto 1.71 K/mm3 (0.9-3.2); Lymphocytes Percent Auto 13.2 % (18.3-44.2); Mean Corpuscular HGB Conc 34.3 g/dl (32-36); Mean Corpuscular Hemoglobin 30.2 pg (26-34); Mean Corpuscular Volume 88.2 fl (80-100); Mean Platelet Volume 9.2 fl (7.4-10.4); Monocytes Absolute Auto 0.8 K/mm3 (0.1-0.6); Monocytes Percent Auto 6.4 % (2.6-8.5); Neutrophils Absolute Auto 10.3 K/mm3 (1.3-6.7); Neutrophils Percent Auto 79.4 % (45.5-73.1); Platelet Count Result 156 k/mm3 (150-375); Red Blood Count 3.64 M/mm3 (4.6-6.20); Red Cell Distribution Width 13.1 % (11.5-14.5)
[2024-08-25 06:14] LABS: Anion Gap 8 mmol/L (4-12); Blood Urea Nitrogen 17 mg/dL (9-20); Calcium 8.3 mg/dL (8.4-10.2); Carbon Dioxide 23 mmol/L (22-30); Chloride 105 mmol/L (98-107); Estimated CRCL calculation 69 ml/min; Estimated Glomerular Filt Rate > 60; Glucose 105 mg/dL (65-110); Sodium 136 mmol/L (137-145)
[2024-08-25] MEDS: polyethylene glycoL 3350 17 GM POWD.PACK PO (08:02)
[2024-08-25] MEDS: FAMOTIDINE 20 MG TABLET PO (08:02)
[2024-08-25] MEDS: oxyCODONE/ACETAMINOPHEN (*CRX) 10-325 MG TABLET 1 TAB PO ×2 (08:02→13:46)
[2024-08-25] MEDS: SENNA/DOCUSATE SODIUM TABLET 2 TAB PO (08:02)
[2024-08-25] MEDS: ASPIRIN 81 MG ENTERIC TABLET PO (08:02)
[2024-08-25 09:12] VITALS: BP 103/62; PULSE 88; RESP 15; TEMP 36.8; O2SAT 98
[2024-08-25 12:44] VITALS: O2SAT 99
[2024-08-25 13:12] VITALS: BP 128/58; PULSE 82; RESP 16; TEMP 37.2; O2SAT 100
--- NOTE | 2024-08-25 16:12 | P.PNOP_ITS ---
Progress Note: A&P Assessment and Plan (1) Osteoarthritis of right knee: Code(s): M17.11 - Unilateral primary osteoarthritis, right knee Status: Acute Assessment and Plan: POD 1 DOING WELL. OK TO DC HOME F/U IN 3 WEEKS Subjective Subjective Date/Time Seen: 08/25/24 16:12 Interval history: POD 1 DOING WELL. NO CALF PAIN, GOOD PROGRESS WITH PT Exam Extrem: Other: VSS AFEBRILE DRESSING DRY NV INTACT NEG HOMANS SIGN CALF SOFT NON TENDER Objective Data Vital Signs Vital Signs: Vital Signs - 24 hr 08/24/24 17:12 08/24/24 21:12 08/25/24 01:12 Temperature 36.6 C 36.6 C 37.1 C Pulse Rate 64 70 73 Respiratory Rate 18 18 18 Blood Pressure 108/58 L 131/58 L 126/72 Pulse Oximetry 100 94 97 Oxygen Delivery 08/25/24 05:06 08/25/24 08:00 08/25/24 09:12 Temperature 37.2 C 36.8 C Pulse Rate 74 88 Respiratory Rate 18 15 Blood Pressure 153/73 H 103/62 Pulse Oximetry 96 98 Oxygen Delivery Room Air 08/25/24 12:44 08/25/24 13:12 Temperature 37.2 C Pulse Rate 82 Respiratory Rate 16 Blood Pressure 128/58 L Pulse Oximetry 99 100 Oxygen Delivery Room Air Intake/Output Intake/Output: Intake & Output 08/22/24 08/23/24 08/24/24 08/25/24 23:59 23:59 23:59 23:59 Intake Total 2400 530 Output Total 3 Balance 2400 527 Meds/Results Medications: Active Medications Generic Name Dose Route Start Last Admin Trade Name Freq PRN Reason Stop Dose Admin Acetaminophen 500 mg 08/24/24 15:27 Acetaminophen 500 Mg Tablet PO Q6H PRN Pain Rated 1-3 Aspirin 81 mg 08/24/24 21:00 08/25/24 08:02 Aspirin 81 Mg Enteric Tablet PO 81 mg Q12HR DORYS Administration Diazepam 5 mg 08/24/24 15:27 Diazepam (*Crx) 5 Mg Tablet PO Q8H PRN Spasms Diphenhydramine HCl 25 mg 08/24/24 15:27 Diphenhydramine Hcl Inj 50 Mg/Ml Vial IV PUSH Q6H PRN Itching Famotidine 20 mg 08/24/24 21:00 08/25/24 08:02 Famotidine 20 Mg Tablet PO 20 mg Q12HR DORYS Administration Hydromorphone HCl 1 mg 08/25/24 08:12 Hydromorphone Hcl Inj (*Crx) 2 Mg/Ml Vial IV PUSH Q2H PRN Breakthrough Pain Rated 7-10 or NPO Hydromorphone HCl 0.5 mg 08/25/24 08:12 Hydromorphone Hcl Inj (*Crx) 2 Mg/Ml Vial IV PUSH Q2H PRN Breakthrough Pain Rated 4-6 or NPO Ibuprofen 800 mg in 200 mls @ 400 mls/hr 08/24/24 15:27 Caldolor 800 Mg/200 Ml IVPB Q6H PRN Breakthrough Pain Rated 1-3 or NPO Ketorolac Tromethamine 15 mg 08/24/24 18:00 08/25/24 11:13 Ketorolac 15 Mg/Ml Vial (*Bkc) IV PUSH 08/25/24 18:01 15 mg Q6HR DORYS Administration Miscellaneous Information 1 each 08/24/24 00:01 Magnesium 250mg Ordered. We Stock Mag Oxide 200mg And Mag Gluconate 250mg - Please Specif XX 09/23/24 00:00 CLARIFY DORYS Naloxone HCl 0.1 mg 08/24/24 15:27 Naloxone Hcl 0.4 Mg/Ml Vial IV PUSH Q2M PRN Opiate Reversal Ondansetron HCl 4 mg 08/24/24 15:27 Ondansetron Inj 4 Mg/2 Ml Vial IV PUSH Q4H PRN Nausea And Vomiting Oxycodone/Acetaminophen 1 tablet 08/24/24 15:27 08/25/24 03:01 Oxycodone/Acetaminophen (*Crx) 5-325 Mg Tablet PO 1 tablet Q4H PRN Administration Pain Rated 4-6 Oxycodone/Acetaminophen 1 tab 08/24/24 15:27 08/25/24 13:46 Oxycodone/Acetaminophen (*Crx) 10-325 Mg Tablet PO 1 tab Q6H PRN Administration Pain Rated 7-10 Polyethylene Glycol 17 gm 08/25/24 09:00 08/25/24 08:02 Polyethylene Glycol 3350 17 Gm Powd.Pack PO 17 gm QAM DORYS Administration Senna/Docusate Sodium 2 tab 08/24/24 17:00 08/25/24 08:02 Senna/Docusate Sodium Tablet PO 2 tab BID DORYS Administration Radiology Results: ITS Impressions Knee X-Ray 08/24/24 13:37 IMPRESSION: Expected perioperative appearance of a right total knee prosthetic, as detailed above. Labs Labs: Laboratory Results - last 24 hr 08/25/24 05:52 WBC 13.0 H RBC 3.64 L Hgb 11.0 L Hct 32.1 L MCV 88.2 MCH 30.2 MCHC 34.3 RDW 13.1 Plt Count 156 MPV 9.2 Immature Gran % (Auto) 0.5 Neut % (Auto) 79.4 H Lymph % (Auto) 13.2 L [place] % (Auto) 6.4 Eos % (Auto) 0.3 Baso % (Auto) 0.2 Lymph # (Auto) 1.71 [place] # (Auto) 0.8 H Eos # (Auto) 0.0 Baso # (Auto) 0.0 Abs Immat Gran (auto) 0.07 H Absolute Neuts (auto) 10.3 H Absolute Nucleated RBC 0.000 Nucleated RBC % 0.0 Sodium 136 L Potassium 4.0 Chloride 105 Carbon Dioxide 23 Anion Gap 8 BUN 17 Creatinine 0.96 Estim Creat Clear Calc 69 Estimated GFR > 60 Glucose 105 Calcium 8.3 L
== END 2024-08-25 17:30 | disposition home health service (06) ==
LOC: ANHSURGERY 10:52 → ANH3MEDSUR 15:39
PROVIDERS: PCP Family Medicine; Visit Provider Orthopaedic Surgery
PROC: (CPT 27447; principal; 2024-08-24 10:30)
DX: M17.11 Unilateral primary osteoarthritis, right knee (principal); Z79.899 Other long term (current) drug therapy
CPT/HCPCS: 27447; 36415; 73560; 80048; 85025; 97110; 97116; 97161; 97165; 97530; 97535; A9270; C1713; C1776; J0171; J0690; J1171; J1885; J2003; J2250; J2270; J2405; J2704; J2795; J3010; J7120

== ENCOUNTER 2024-10-18 15:15 | Outpatient (RCR) | payer OTHER, SELFPAY ==
--- NOTE | 2024-09-20 16:17 | OPREHPOC ---
Outpatient Therapy Plan of Care This is a Multidisciplinary Plan of Care that may contain components documented by all disciplines (PT, OT, and ST.) PT Problem 1 PT Problem #1 Knowledge Deficit PT Goal 1 Goal / Goal Update [place] with HEP Target Visit 4 PT Goal 2 Goal / Goal Update Report no pain greater than 2/10 Target Visit 8 PT Problem 2 PT Problem #2 Impaired Range of Motion PT Goal 1 Goal / Goal Update 1. Achieve terminal knee extension 2. Improve R knee flexion ROM to 125 degrees Target Visit 8 PT Problem 3 PT Problem #3 Edema PT Goal 1 Goal / Goal Update Demonstrate 2+ cm reduction in knee joint line measure Target Visit 8 PT Problem 4 PT Problem #4 Impaired Gait PT Goal 1 Goal / Goal Update Ambulate independent of AD with even stride length bilaterally Target Visit 8
--- NOTE | 2024-09-20 16:18 | PTOPEVAL1 ---
Assessment and note entered by Matti Gómez, PT Evaluation Information Assessment Status Evaluation Diagnosis Right Total Knee Arthroplasty ICD-10 Condition Codes (PT) Pain in right hip M25.551 Onset 08/24/24 Subjective Information Reports that overall he feels he is doing fairly well. Feels that his biggest struggles are motion and stretching of the knee. Reports that he was very bow legged prior to surgery and can feel that he is changing the direction of his bend. Struggles with squatting and floor retrieval. Reports that he has been having some trouble with sleeping and he still gets some sharp pains on the anterior knee off and on when sleeping. Reported Pain Level Pain Score 0: Self Report Assessment PT Clinical Summary Patient presents with signs and symptoms typical of post operative total knee arthroplasty. Patient is 1 month out of surgery and presents with continued dependence on AD, knee swelling, and lack of full functional knee ROM. 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 Plan of Care Interventions Gait Training,Manual Therapy,Neuro Re-education, Therapeutic Activities,Therapeutic Exercise PT Services Indicated Yes Treatment Frequency and 2x/week for 8 visits Duration These treatments will address the objective and functional deficits as defined above. The patient will be advanced safely and appropriately in order for the patient to progress towards his/her prior level of function. Additional exercises will be introduced and as well as a comprehensive home exercise program upon discharge, if needed, ?to ensure carryover of functional gains achieved in the clinic. This treatment plan has been reviewed and agreement upon by the patient.
--- NOTE | 2024-10-18 16:18 | OPREHPOC ---
Outpatient Therapy Plan of Care This is a Multidisciplinary Plan of Care that may contain components documented by all disciplines (PT, OT, and ST.) PT Problem 1 PT Problem #1 Knowledge Deficit PT Goal 1 Goal / Goal Update [place] with HEP Target Visit 4 Progress Met PT Goal 2 Goal / Goal Update Report no pain greater than 2/10 Target Visit 8 Progress Met PT Problem 2 PT Problem #2 Impaired Range of Motion PT Goal 1 Goal / Goal Update 1. Achieve terminal knee extension 2. Improve R knee flexion ROM to 125 degrees Target Visit 8 Progress Partially Met PT Problem 3 PT Problem #3 Edema PT Goal 1 Goal / Goal Update Demonstrate 2+ cm reduction in knee joint line measure Target Visit 8 Progress Met PT Problem 4 PT Problem #4 Impaired Gait PT Goal 1 Goal / Goal Update Ambulate independent of AD with even stride length bilaterally Target Visit 8 Progress Met
--- NOTE | 2024-10-18 16:18 | PTOPDC ---
Assessment and note entered by Matti Gómez, PT Evaluation Information Assessment Status Discharge Diagnosis Right Total Knee Arthroplasty ICD-10 Condition Codes (PT) Pain in right hip M25.551 Onset 08/24/24 Subjective Information Reports that overall he feels that he is doing much better. Reports that he is still having some edema which he can feel affecting his flexion activity. He has been consistently doing exercise at home. Reported Pain Level Pain Score 1: Self Report Assessment PT Clinical Summary Patient has met all goals for therapy and is suitable for discharge at this time to [facility]. Patient continues to show some edema in knee limiting terminal knee flexion motion at this time . He is consistent and compliant with HEP ad will continue as needed. Plan of Care PT Services Indicated Yes
== END 2024-10-19 11:37 | disposition home or self-care (01) ==
LOC: ANHGOSHPT 15:15
PROVIDERS: PCP Family Medicine; Visit Provider Orthopaedic Surgery
DX: Z47.1 Aftercare following joint replacement surgery (principal); Z96.651 Presence of right artificial knee joint
CPT/HCPCS: 97016; 97110; 97161; 97530